=== PATIENT | female | born 1970 | race Caucasian/White ===

== ENCOUNTER 2016-09-17 15:28 | Emergency (ER) | payer SELFPAY ==
[~2016-09-17 15:28] MED LIST: ATIVAN-DPS0.5 MG; FLEXERIL-DPS10 MG PO; GLUTOSE 1537.5 GM PO; HABITROL DPS14 MG TD; HUMALOG100 UNIT/1 SQ; LANTUS100 UNITS/ SQ; LEVAQUIN DPS500 MG PO; LEVEMIR100 UNIT/1 SQ; LORAZEPAM0.5 MG PO; MAALOX DPS30 ML PO; MOBIC15 MG PO; NEURONTIN DPS100 MG; NEURONTIN DPS300 MG PO; NORCO 10-325 T1 EACH PO; PROAIR HFA8.5 GM IH; PROTONIX40 MG PO; REQUIP1 MG PO; SURFAK DPS240 MG PO; TYLENOL DPS325 MG PO; VALACYCLOVIR500 MG PO; ZITHROMAX500 MG PO
--- NOTE | 2016-09-18 19:18 | ER ---
ADMIT: 09/17/2016 RM/LOC: ER [facility] MR#: [id number] [facility] [id number] YESENIA BOND [address] [place] [address] Emergency Room Report SEX: F AGE: 46 : 1970 DATE: 09/17/2016 The patient is a 46-year-old female, complaining of right anterior jason pain after moving the past two days. Denies any prior history of jason splints, DVT, or direct trauma to the leg. Exam remarkable for acutely uncomfortable, nontoxic, afebrile female. Tender right anterior compartment, palpable dorsalis pedis, JAYEDN greater than 1.2 both legs. D-dimer 0.25. X-ray negative. The patient medicated with Toradol, Dilaudid, and Reglan with marked improvement. Advised rest, ice massage to leg, ibuprofen 800 mg over- the-counter t.i.d. p.r.n. Follow up with [facility] as needed. Jarred Baptiste MD/ heather JOB #: [id number] CC: Jean-Pierre Shay MD, Attending Physician Lyndsey Milton, CODIE-STORE WORKER
== END 2016-09-17 17:30 | disposition home or self-care (01) ==
LOC: ER 15:28
PROC: 2W3LX1Z Immobilization of Right Lower Extremity using Splint (ICD-10-PCS; principal; 2016-09-17)
DX: M79.661 Pain in right lower leg (principal); F17.210 Nicotine dependence, cigarettes, uncomplicated; E11.9 Type 2 diabetes mellitus without complications; Z79.899 Other long term (current) drug therapy

== ENCOUNTER 2016-10-09 08:17 | Emergency (ER) | payer SELFPAY ==
--- NOTE | 2016-10-12 13:18 | ER ---
ADMIT: 10/09/2016 RM/LOC: ER [facility] MR#: [id number] [id number] YESENIA BOND [address] [place] [id number] Emergency Room Report SEX: F AGE: 46 : 1970 DATE: 10/09/2016 TIME: 0817 hours. Please refer to my T-sheet for complete H and P. HISTORY OF PRESENT ILLNESS: Briefly, the patient is a 46-year-old, comes in with left eye mattering and bothering her for 2 days. Denies any trauma, is here for evaluation. PHYSICAL EXAMINATION: VITAL SIGNS: Stable. HEENT: She has a little periorbital swelling. Her conjunctiva are slightly injected. There is no hyphema. No tenderness to the orbit itself. EMERGENCY DEPARTMENT COURSE: Fluorescein stained after using the topical anesthetic. No foreign body was seen, no abnormality. I gave her Keflex 500 mg p.o. and erythromycin ointment, she is ready for discharge. ASSESSMENT: 1. Left conjunctivitis. 2. Mild periorbital cellulitis. PLAN: Keflex 500 mg q.i.d. for 7 days, erythromycin q.i.d. for 4 to 5 days[address] Follow up with Dr. Ellis this week. Return if worse. Surendra Tong MD/ heather JOB #: [id number] CC: Surendra Tong MD, Attending Physician MD Lyndsey Bedolla, NURSING UNIT MANAGER-REHABILITATOR
== END 2016-10-09 09:05 | disposition home or self-care (01) ==
LOC: ER 08:17
DX: H05.012 Cellulitis of left orbit (principal); H10.9 Unspecified conjunctivitis; F17.210 Nicotine dependence, cigarettes, uncomplicated; Z79.4 Long term (current) use of insulin; Z79.899 Other long term (current) drug therapy